=== PATIENT | female | born 1975 | race Hispanic/Latino ===

== ENCOUNTER 2017-06-11 04:05 | Observation (INO) | payer MEDICAID, OTHER ==
[~2017-06-11] VITALS: Ht 160 cm; Wt 74.8 kg
[2017-06-11 05:00] VITALS: BP 134/84
[2017-06-11 05:26] LABS: APPEARANCE,URINE Clear (CLEAR); BILIRUBIN,URINE Negative (NEGATIVE); COLOR,URINE Yellow (YELLOW); GLUCOSE, URINE (UA) Negative (NEGATIVE); KETONES,URINE Negative (NEGATIVE); LEUKOCYTE ESTERASE ,URINE Small (NEGATIVE); NITRATE,URINE Negative (NEGATIVE); OCCULT BLOOD,URINE Negative (NEGATIVE); PH,URINE 7.5 (5.0-8.0); PROTEIN,URINE Negative (NEGATIVE)
[2017-06-11] MEDS ORDERED: LACTATED RINGERS 1000ML IV PRN (05:30)
[2017-06-11] MEDS ORDERED: LACTATED RINGERS 1000ML 1,000 ML IV SCH (05:30)
[2017-06-11 05:33] LABS: AMPHET/METH SCREEN,URINE NEGATIVE (NEGATIVE); BARBITURATE SCREEN, URINE NEGATIVE (NEGATIVE); BENZODIAZEPINES SCREEN,URINE NEGATIVE (NEGATIVE); CANNABINOID SCREEN,URINE NEGATIVE (NEGATIVE); COCAINE SCREEN,URINE NEGATIVE (NEGATIVE); OPIATE SCREEN,URINE NEGATIVE (NEGATIVE); PHENCYCLIDINE SCREEN,URINE NEGATIVE (NEGATIVE)
[2017-06-11 05:34] LABS: BACTERIA,URINE None Seen /HPF (None Seen); RBC,URINE None Seen /HPF (0-1); SQUAMOUS EPITHELIAL CELL,UR Rare /HPF (0-2); WBC,URINE 0-1 /HPF (0-1)
== END 2017-06-11 08:35 | disposition home or self-care (01) ==
LOC: EDH 04:05 → LDH 04:06
PROVIDERS: ADMIT Internal Medicine; ATTEND Internal Medicine
DX: O26.893 Other specified pregnancy related conditions, third trimester (principal); R10.30 Lower abdominal pain, unspecified; Z3A.38 38 weeks gestation of pregnancy
CPT/HCPCS: 76805; 80305; 81001; 96360; 99285; G0378 ×4; J7120; 96361

== ENCOUNTER 2017-06-17 06:10 | Inpatient (IN) | payer MEDICAID, OTHER ==
[~2017-06-17] VITALS: Ht 160 cm; Wt 74.4 kg
[2017-06-17] MEDS ORDERED: OXYTOCIN 10 USP UNITS/ML ONE (06:38)
[2017-06-17] MEDS ORDERED: LACTATED RINGERS 1000ML 1,000 ML IV ONE (06:38)
[2017-06-17] MEDS ORDERED: LIDOCAINE HCL 1% 20 ML VIAL ONE (06:49)
[2017-06-17] MEDS ORDERED: OXYTOCIN 10 USP UNITS/ML IM SCH (07:00)
[2017-06-17 07:27] LABS: HEMATOCRIT 37.5 % (36-48); MEAN CORPUSCULAR HGB CONC 33.2 g/dL (32.0-36.0); MEAN CORPUSCULAR VOLUME 87.4 fL (79-99); PLATELET COUNT (AUTO) 322 K/uL (130-400); RED BLOOD CELL COUNT(AUTO) 4.29 MIL/uL (4.00-5.50); RED CELL DISTRIBUTION WIDTH 13.2 % (11.0-15.5); WHITE BLOOD COUNT (AUTO) 11.4 K/uL (4.8-10.8)
[2017-06-17] MEDS ORDERED: WITCH HAZEL 1 PAD TP PRN (08:15)
[2017-06-17] MEDS ORDERED: ACETAMINOPHEN 325 MG TAB PO PRN (08:15)
[2017-06-17] MEDS ORDERED: DIPH,PERTUSS(ACELL),TET VAC/PF 0.5 ML VIAL IM PRN (08:15)
[2017-06-17] MEDS ORDERED: HYDROCODONE/ACETAMINOPHEN 5/325 MG TAB PO PRN (08:15)
[2017-06-17] MEDS ORDERED: LANOLIN 30GM OINTMENT TP PRN (08:15)
[2017-06-17] MEDS ORDERED: MEASLES/MUMPS/RUBELLA VACCINE, LIVE 0.5 ML/VIAL SQ PRN (08:15)
[2017-06-17] MEDS ORDERED: ACETAMINOPHEN-CODEINE 300/30MG TAB PO PRN (08:15)
[2017-06-17] MEDS ORDERED: BENZOCAINE/LANOLIN/ALOE VERA 60 ML AEROSOL TP PRN (08:15)
[2017-06-17 08:47] VITALS: BP 138/85
[2017-06-17 10:56] LABS: APPEARANCE,URINE CLOUDY (CLEAR); BILIRUBIN,URINE SMALL (NEGATIVE); COLOR,URINE RED (YELLOW); GLUCOSE, URINE (UA) NEGATIVE (NEGATIVE); KETONES,URINE NEGATIVE (NEGATIVE); LEUKOCYTE ESTERASE ,URINE SMALL (NEGATIVE); NITRATE,URINE POSITIVE (NEGATIVE); OCCULT BLOOD,URINE LARGE (NEGATIVE); PH,URINE 7.5 (5.0-8.0); PROTEIN,URINE 100 (NEGATIVE)
[2017-06-17 11:02] LABS: AMPHET/METH SCREEN,URINE NEGATIVE (NEGATIVE); BARBITURATE SCREEN, URINE NEGATIVE (NEGATIVE); BENZODIAZEPINES SCREEN,URINE NEGATIVE (NEGATIVE); CANNABINOID SCREEN,URINE NEGATIVE (NEGATIVE); COCAINE SCREEN,URINE NEGATIVE (NEGATIVE); OPIATE SCREEN,URINE NEGATIVE (NEGATIVE); PHENCYCLIDINE SCREEN,URINE NEGATIVE (NEGATIVE)
[2017-06-17 11:04] LABS: RBC,URINE TNTC /HPF (0-1)
[2017-06-17 11:05] LABS: BACTERIA,URINE Rare /HPF (None Seen); SQUAMOUS EPITHELIAL CELL,UR Rare /HPF (0-2)
[2017-06-17] MEDS: DOCUSATE SODIUM 100 MG CAP PO SCH ×2 (11:08→20:41)
[2017-06-17] MEDS: IBUPROFEN 800 MG TAB PO PRN ×2 (11:13→18:28)
[2017-06-17 11:59] VITALS: BP 132/81
[2017-06-17 15:34] VITALS: BP 126/79
[2017-06-17 19:15] VITALS: BP 132/62
[2017-06-17 20:15] VITALS: BP 129/79
[2017-06-17 21:04] LABS: RAPID PLASMA REAGIN NONREACTIVE (NONREACTIVE)
[2017-06-17 23:30] VITALS: BP 128/75
[2017-06-18 03:20] VITALS: BP 120/75
[2017-06-18 06:52] LABS: HEMATOCRIT 33.2 % (36-48); MEAN CORPUSCULAR HEMOGLOBIN 30.2 pg (27.0-33.0); MEAN CORPUSCULAR HGB CONC 34.5 g/dL (32.0-36.0); MEAN CORPUSCULAR VOLUME 87.6 fL (79-99); PLATELET COUNT (AUTO) 285 K/uL (130-400); RED BLOOD CELL COUNT(AUTO) 3.79 MIL/uL (4.00-5.50); RED CELL DISTRIBUTION WIDTH 13.3 % (11.0-15.5)
[2017-06-18 07:22] LABS: HEPATITIS Bs ANTIGEN SCREEN P Negative (Negative)
[2017-06-18 08:07] VITALS: BP 120/76
[2017-06-18] MEDS: DOCUSATE SODIUM 100 MG CAP PO SCH (08:45)
[2017-06-18] MEDS: IBUPROFEN 800 MG TAB PO PRN (08:48)
[2017-06-18 11:11] VITALS: BP 127/70
== END 2017-06-18 15:10 | disposition home or self-care (01) | DRG 775 ==
LOC: EDH 06:10 → OBSVTOIN 06:11 → LDH 06:11 → WSH 08:50
PROVIDERS: ADMIT Obstetrics & Gynecology; ATTEND Obstetrics & Gynecology
PROC: 10E0XZZ Delivery of Products of Conception, External Approach (ICD-10-PCS; principal; 2017-06-17)
PROC: 10907ZC Drainage of Amniotic Fluid, Therapeutic from Products of Conception, Via Natural or Artificial Opening (ICD-10-PCS; 2017-06-17)
PROC: 3E0234Z Introduction of Serum, Toxoid and Vaccine into Muscle, Percutaneous Approach (ICD-10-PCS; 2017-06-17)
PROC: 3E0134Z Introduction of Serum, Toxoid and Vaccine into Subcutaneous Tissue, Percutaneous Approach (ICD-10-PCS; 2017-06-17)
DX: O62.3 Precipitate labor (principal); O09.33 Supervision of pregnancy with insufficient antenatal care, third trimester; Z37.0 Single live birth; Z3A.39 39 weeks gestation of pregnancy
CPT/HCPCS: 36415; 80305; 81001; 85027; 86592; 86701; 86850; 86900; 86901; 87340; 87390; J2590; J7120